=== PATIENT | male | born 1995 | race Caucasian/White ===

== ENCOUNTER 2018-10-07 | Emergency (ER) | payer OTHER ==
[~2018-10-07] VITALS: Ht 190.5 cm; Wt 58.1 kg
[~2018-10-07] MED LIST: MOTRIN800 MG PO
[2018-10-07] MEDS ORDERED: IBUPROFEN600 MG PO (03:59)
[2018-10-07] MEDS ORDERED: AIRBORNE EFFER1 EACH PO (03:59)
== END 2018-10-07 04:12 | disposition home or self-care (01) ==
LOC: ER
DX: B34.9 Viral infection, unspecified (principal)

== ENCOUNTER 2018-10-30 13:02 | Emergency (ER) | payer OTHER ==
[~2018-10-30] VITALS: Ht 190.5 cm; Wt 90.7 kg
[~2018-10-30 13:02] MED LIST changes: +AIRBORNE EFFER1 EACH PO; +IBUPROFEN600 MG PO
[2018-10-30] MEDS ORDERED: DUI500 PO (15:39)
== END 2018-10-30 16:26 | disposition home or self-care (01) ==
LOC: ER 13:02
DX: S61.220A Laceration with foreign body of right index finger without damage to nail, initial encounter (principal); W26.0XXA Contact with knife, initial encounter; Y93.89 Activity, other specified; Y92.69 Other specified industrial and construction area as the place of occurrence of the external cause; Y99.8 Other external cause status